=== PATIENT | female | born 1975 | race Caucasian/White ===

== ENCOUNTER 2017-12-11 05:23 | Emergency (ER) | payer BC ==
[2017-12-11] MEDS ORDERED: Sodium Chloride 0.9% 1,000 ML IV ONE (05:31)
[2017-12-11] MEDS ORDERED: Ondansetron 4 MG/2 ML SDV IVPUSH ONE (05:31)
[2017-12-11] MEDS ORDERED: Ketorolac 30 MG/ML SDV IVPUSH ONE (05:32)
--- NOTE | 2017-12-11 05:33 | EDM.PDOC ---
ED HPI GENERAL MEDICAL PROBLEM - General Chief Complaint: Headache Stated Complaint: MIGRAINE Time Seen by Provider: 12/11/17 05:33 Source of Information: Reports: Patient - History of Present Illness INITIAL COMMENTS - FREE TEXT/NARRATIVE: HISTORY AND PHYSICAL: History of present illness: [Patient presents with right-sided unilateral headache scotoma nausea couple episodes of vomiting, she has had long headache history she is not had a head CT since she was 12 years old, she was previously on Imitrex which worked and aborted the headaches although it took quite a while for work recently she was switched to Maxalt which she has tried 3 doses within the last 24 hours without much benefit. No fever chills sweats no chest pain shortness breath dizziness or palpitation no bowel or urine symptoms ] Review of systems: As per history of present illness and below otherwise all systems reviewed and negative. Past medical history: As per history of present illness and as reviewed below otherwise noncontributory. Surgical history: As per history of present illness and as reviewed below otherwise noncontributory. Social history: No reported history of drug or alcohol abuse. Family history: As per history of present illness and as reviewed below otherwise noncontributory. Physical exam: HEENT: Atraumatic, normocephalic, pupils reactive, negative for conjunctival pallor or scleral icterus, mucous membranes moist, throat clear, neck supple, nontender, trachea midline. Lungs: Clear to auscultation, breath sounds equal bilaterally, chest nontender. Heart: S1S2, regular, negative for clicks, rubs, or JVD. Abdomen: Soft, nondistended, nontender. Negative for masses or hepatosplenomegaly. Negative for costovertebral tenderness. Pelvis: Stable nontender. Genitourinary: Deferred. Rectal: Deferred. Extremities: Atraumatic, negative for cords or calf pain. Neurovascular unremarkable. Neuro: Awake, alert, oriented. Cranial nerves II through XII unremarkable. Cerebellum unremarkable. Motor and sensory unremarkable throughout. Exam nonfocal. Diagnostics: [Head CT no contrast ] Therapeutics: [1 L normal saline bolus Zofran 8 mg IV Toradol 30 mg IV ]Benadryl 50 mg IV Ativan 1 mg IIV Impression: [ migraine- improved/resolved] Definitive disposition and diagnosis as appropriate pending reevaluation and review of above. Pareital area Pain Score (Numeric/FACES): 6 - Related Data Allergies Allergy/AdvReac Type Severity Reaction Status Date / Time brompheniramine Allergy Hives Verified 12/11/17 05:28 [From Dimetapp (brompheniramine-PPA)] codeine Allergy Difficulty Verified 12/11/17 05:28 Breathing phenylpropanolamine Allergy Hives Verified 12/11/17 05:28 [From Dimetapp (brompheniramine-PPA)] Home Meds: Home Meds Propranolol HCl [Inderal LA] 1 tab PO DAILY 05/10/16 [History] Rizatriptan [Maxalt] 10 mg PO DAILY 12/11/17 [History] Past Medical History Neurological History: Reports: Migraines, Other (See Below) Other Neuro History: tremors - Past Surgical History Female Surgical History: Reports: Breast Implant, Hysterectomy Social & Family History - Family History Family Medical History: Noncontributory - Tobacco Use Smoking Status *Q: Current Every Day Smoker Years of Tobacco use: 12 Packs/Tins Daily: 0.7 - Recreational Drug Use Recreational Drug Use: No ED ROS GENERAL - Review of Systems Review Of Systems: ROS reveals no pertinent complaints other than HPI. ED EXAM, GENERAL - Physical Exam Exam: See Below Course - Vital Signs Last Recorded V/S: Last Vital Signs Temp 97.5 F 12/11/17 05:23 Pulse 74 12/11/17 05:23 Resp 18 12/11/17 05:23 BP 117/75 12/11/17 05:23 Pulse Ox 100 12/11/17 05:23 - Orders/Labs/Meds Orders: Active Orders 24 hr Category Date Time Status Head wo Cont [CT] Stat Exams 12/11/17 05:47 Taken LORazepam [Ativan] Med 12/11/17 06:35 Once 1 mg IVPUSH ONETIME ONE diphenhydrAMINE [Benadryl] Med 12/11/17 06:34 Once 50 mg IVPUSH ONETIME ONE Meds: Medications Discontinued Medications Generic Name Dose Route Start Last Admin Trade Name Freq PRN Reason Stop Dose Admin Sodium Chloride 1,000 mls @ 999 mls/hr 12/11/17 05:31 12/11/17 05:38 Normal Saline IV 12/11/17 06:31 999 mls/hr STAT ONE Administration Ketorolac Tromethamine 30 mg 12/11/17 05:32 12/11/17 05:43 Toradol IVPUSH 12/11/17 05:33 30 mg ONETIME ONE Administration Ondansetron HCl 8 mg 12/11/17 05:31 12/11/17 05:39 Zofran IVPUSH 12/11/17 05:32 8 mg ONETIME ONE Administration Departure - Departure Time of Disposition: 06:36 Disposition: Home, Self-Care 01 Condition: Good Clinical Impression: Migraine - Discharge Information Referrals: Kaylin Goins DO [Primary Care Provider] - Forms: ED Department Discharge Additional Instructions: The following information is given to patients seen in the emergency department who are being discharged to home. This information is to outline your options for follow-up care. We provide all patients seen in our emergency department with a follow-up referral. The need for follow-up, as well as the timing and circumstances, are variable depending upon the specifics of your emergency department visit. If you don't have a primary care physician on staff, we will provide you with a referral. We always advise you to contact your personal physician following an emergency department visit to inform them of the circumstance of the visit and for follow-up with them and/or the need for any referrals to a consulting specialist. The emergency department will also refer you to a specialist when appropriate. This referral assures that you have the opportunity for follow-up care with a specialist. All of these measure are taken in an effort to provide you with optimal care, which includes your follow-up. Under all circumstances we always encourage you to contact your private physician who remains a resource for coordinating your care. When calling for follow-up care, please make the office aware that this follow-up is from your recent emergency room visit. If for any reason you are refused follow-up, please contact the [facility] emergency department at and asked to speak to the emergency department charge nurse. - My Orders Last 24 Hours: My Active Orders 12/11/17 05:47 Head wo Cont [CT] Stat 12/11/17 06:34 diphenhydrAMINE [Benadryl] 50 mg IVPUSH ONETIME ONE 12/11/17 06:35 LORazepam [Ativan] 1 mg IVPUSH ONETIME ONE - Assessment/Plan Last 24 Hours: My Active Orders 12/11/17 05:47 Head wo Cont [CT] Stat 12/11/17 06:34 diphenhydrAMINE [Benadryl] 50 mg IVPUSH ONETIME ONE 12/11/17 06:35 LORazepam [Ativan] 1 mg IVPUSH ONETIME ONE
[2017-12-11] MEDS ORDERED: diphenhydrAMINE 50 MG/ML SDV IVPUSH ONE (06:34)
[2017-12-11] MEDS ORDERED: LORazepam 2 MG/ML SDV IVPUSH ONE (06:35)
[2017-12-11 06:45] VITALS: BP 107/66
--- NOTE | 2017-12-11 09:55 | CT ---
EXAM DATE: 12/11/17 PATIENT'S AGE: 42 Patient: LYNDON AGUILAR Facility: [place], [place] Site . Site : [id number] Study: CT Head [id number]/28/2018 6:12:22 AM Ordering Physician: Cristobal Singer Final Report: INDICATION: Chronic worsening headache. COMPARISON: CT head October 15, 2017. TECHNIQUE: CT head without intravenous contrast; coronal and sagittal reformats. FINDINGS: No evidence of intracranial hemorrhage. No mass lesions. No evidence of shift of the midline structures. The calvarium is unremarkable. The ventricular system , the subarachnoid cisterns and the cerebral sulci are unremarkable. No interval change. IMPRESSION: Negative unenhanced head CT. Please note that all CT scans at this facility use dose modulation, iterative reconstruction, and/or weight-based dosing when appropriate to reduce radiation dose to as low as reasonably achievable. Dictated by Amy Ozuna MD @ Dec 11 2017 6:39AM (Electronic Signature) Report Signed by Proxy. MTDD
== END 2017-12-11 06:50 | disposition home or self-care (01) ==
LOC: MW.ED 05:23
DX: G43.909 Migraine, unspecified, not intractable, without status migrainosus (principal); Z88.5 Allergy status to narcotic agent; Z88.8 Allergy status to other drugs, medicaments and biological substances; F17.210 Nicotine dependence, cigarettes, uncomplicated; Z79.899 Other long term (current) drug therapy
CPT/HCPCS: 70450; 96361; 96374; 96375; 99284; J1200; J1885; J2060; J2405; J7040; 99283

== ENCOUNTER 2018-11-05 19:53 | Emergency (ER) | payer BC ==
[2018-11-05 20:06] VITALS: BP 133/92
[2018-11-05] MEDS ORDERED: Ketorolac 30 MG/ML SDV IVPUSH ONE (20:15)
[2018-11-05] MEDS ORDERED: Ondansetron 4 MG/2 ML SDV IVPUSH ONE (20:15)
[2018-11-05] MEDS ORDERED: diphenhydrAMINE 50 MG/ML SDV IVPUSH ONE (20:15)
[2018-11-05] MEDS ORDERED: Sodium Chloride 0.9% 1,000 ML IV ONE (20:15)
[2018-11-05] MEDS ORDERED: Metoclopramide 10 MG/2 ML SDV IV ONE (20:15)
--- NOTE | 2018-11-05 20:18 | EDM.PDOC ---
ED HPI GENERAL MEDICAL PROBLEM - General Chief Complaint: Headache Stated Complaint: MIGRAINE HEADACHE Time Seen by Provider: 11/05/18 20:00 Source of Information: Reports: Patient History Limitations: Reports: No Limitations - History of Present Illness INITIAL COMMENTS - FREE TEXT/NARRATIVE: HISTORY AND PHYSICAL: History of present illness: Patient is a 43-year-old female who presents to the ED today with concerns of a migraine. Patient states she has a long history of migraines and this feels like her usual migraine. She states that she does have some neck pain which radiates into her cheek and forehead. The neck pain she says is unusual for her but other than this, her pain is similar to her usual migraines. She denies any injury or trauma states that this headache. Patient states she's had this headache since Saturday decided to come in today because the neck pain became unbearable. She states that she does have preventative and rescue medications for her headaches but has recently run out of the rescue medications. She states she is in the process of adjusting her preventative medication with her primary care physician. She denies any visual changes or aura. She has some nausea but no vomiting. Patient denies shortness of breath, cough, difficulties breathing, palpitations , chest pain, abdominal pain, fever, chills, or all other GI, , cardiovascular , or respiratory complaints. Patient does have a history of migraines but denies any other health history. Review of systems: As per history of present illness and below otherwise all systems reviewed and negative. Past medical history: As per history of present illness and as reviewed below otherwise noncontributory. Surgical history: As per history of present illness and as reviewed below otherwise noncontributory. Social history: See social history for further information Family history: As per history of present illness and as reviewed below otherwise noncontributory. Physical exam: General: Patient is alert, oriented, in no acute distress. She does appear mildly uncomfortable lying on exam table. She is tearful throughout exam. HEENT: Atraumatic, normocephalic, pupils equal and reactive bilaterally, negative for conjunctival pallor or scleral icterus, mucous membranes moist, TMs normal bilaterally, throat clear, neck supple, nontender, trachea midline. No drooling or trismus noted. No meningeal signs. No hot potato voice noted. Lungs: Clear to auscultation, breath sounds equal bilaterally, chest nontender. Heart: S1S2, regular rate and rhythm without overt murmur Abdomen: Soft, nondistended, nontender. Negative for masses or hepatosplenomegaly. Negative for costovertebral tenderness. Pelvis: Stable nontender. Genitourinary: Deferred. Rectal: Deferred. Skin: Intact, warm, dry. No lesions or rashes noted. Extremities: Atraumatic, negative for cords or calf pain. Neurovascular unremarkable. Neuro: Awake, alert, oriented. Cranial nerves II through XII unremarkable. Cerebellum unremarkable. Motor and sensory unremarkable throughout. Exam nonfocal. Notes: Will treat migraine with headache cocktail today. Will do an ESR. Supportive care measures were reviewed and discussed. Voices understanding and is agreeable to plan of care. Denies any further questions or concerns at this time. Diagnostics: ESR Therapeutics: Saline, Toradol, Benadryl, Reglan, zofran Prescription: None Impression: Headache Plan: 1. Continue to use Tylenol and ibuprofen as directed for pain. New to push fluids to prevent dehydration. 2. Follow-up with your primary care provider as discussed. 3. Return to the ED as needed and as discussed. Definitive disposition and diagnosis as appropriate pending reevaluation and review of above. Head Pain Score (Numeric/FACES): 8 - Related Data Allergies Allergy/AdvReac Type Severity Reaction Status Date / Time brompheniramine Allergy Hives Verified 11/05/18 20:02 [From Dimetapp (brompheniramine-PPA)] codeine Allergy Difficulty Verified 11/05/18 20:02 Breathing phenylpropanolamine Allergy Hives Verified 11/05/18 20:02 [From Dimetapp (brompheniramine-PPA)] Home Meds: Home Meds Propranolol HCl [Inderal LA] 1 tab PO DAILY 05/10/16 [History] Rizatriptan [Maxalt] 10 mg PO DAILY 12/11/17 [History] Past Medical History HEENT History: Reports: None Cardiovascular History: Reports: None Respiratory History: Reports: None Gastrointestinal History: Reports: None [employer]IST History: Reports: None Musculoskeletal History: Reports: None Neurological History: Reports: Migraines, Other (See Below) Other Neuro History: tremors Psychiatric History: Reports: None Endocrine/Metabolic History: Reports: None Hematologic History: Reports: None Immunologic History: Reports: None Dermatologic History: Reports: None - Infectious Disease History Infectious Disease History: Reports: Chicken Pox - Past Surgical History Head Surgeries/Procedures: Reports: None Female Surgical History: Reports: Breast Implant, Hysterectomy Social & Family History - Family History Family Medical History: Noncontributory - Tobacco Use Smoking Status *Q: Current Every Day Smoker Years of Tobacco use: 20 Packs/Tins Daily: 1 - Caffeine Use Caffeine Use: Reports: Coffee - Recreational Drug Use Recreational Drug Use: No ED ROS GENERAL - Review of Systems Review Of Systems: ROS reveals no pertinent complaints other than HPI. - Physical Exam Exam: See Below (See dictation) Course - Vital Signs Last Recorded V/S: Last Vital Signs Temp 98.1 F 11/05/18 20:03 Pulse 68 11/05/18 20:03 Resp 18 11/05/18 20:03 BP 133/92 H 11/05/18 20:03 Pulse Ox 100 11/05/18 20:03 - Orders/Labs/Meds Labs: Laboratory Tests 11/05/18 Range/Units 21:13 ESR 1 (0-19) mm/hr Meds: Medications Discontinued Medications Generic Name Dose Route Start Last Admin Trade Name Freq PRN Reason Stop Dose Admin Diphenhydramine HCl 50 mg 11/05/18 20:15 11/05/18 20:55 Benadryl IVPUSH 11/05/18 20:16 50 mg ONETIME ONE Administration Sodium Chloride 1,000 mls @ 999 mls/hr 11/05/18 20:15 11/05/18 20:55 Normal Saline IV 11/05/18 21:15 999 mls/hr STAT ONE Administration Ketorolac Tromethamine 30 mg 11/05/18 20:15 11/05/18 20:54 Toradol IVPUSH 11/05/18 20:16 30 mg ONETIME ONE Administration Metoclopramide HCl 10 mg 11/05/18 20:15 11/05/18 20:55 Reglan IV 11/05/18 20:16 10 mg ONETIME ONE Administration Ondansetron HCl 4 mg 11/05/18 20:15 11/05/18 20:54 Zofran IVPUSH 11/05/18 20:16 4 mg ONETIME ONE Administration Departure - Departure Time of Disposition: 22:00 Disposition: Home, Self-Care 01 Clinical Impression: Migraine headache Qualifiers: Migraine type: unspecified Status migrainosus presence: without status migrainosus Intractability: not intractable Qualified Code(s): G43.909 - Migraine, unspecified, not intractable, without status migrainosus - Discharge Information Instructions: Migraine Headache, [id number] Referrals: PCP,Unknown [Primary Care Provider] - Forms: ED Department Discharge Additional Instructions: Follow up with primary provider, return as needed and as discussed
== END 2018-11-05 22:10 | disposition home or self-care (01) ==
LOC: MW.ED 19:53
DX: G43.909 Migraine, unspecified, not intractable, without status migrainosus (principal); F17.210 Nicotine dependence, cigarettes, uncomplicated; Z88.8 Allergy status to other drugs, medicaments and biological substances; Z88.5 Allergy status to narcotic agent; Z79.899 Other long term (current) drug therapy
CPT/HCPCS: 36415; 85652; 96361; 96374; 96375; 99284; J1200; J1885; J2405; J2765; J7040